=== PATIENT | female | born 1970 | race Caucasian/White ===

== ENCOUNTER 2018-03-11 18:56 | Emergency (ER) | payer OTHER ==
[~2018-03-11] VITALS: Ht 160 cm; Wt 135.6 kg
[~2018-03-11 18:56] MED LIST: ALAVERT10 M1 PO; ALBUTEROL SULF8.5 GM IH; ANAPROX DS550 M1 PO; ARTHRITIS MED; AZITHROMYCIN250 MG1 PO; CEFDINIR300 MG PO; CEPHALEXIN500 MG PO; FUROSEMIDE20 MG PO; GUAIFENESIN WI120 ML PO; LANTUS 10100 UNITS/ SC; LEVAQUIN750 MG PO; LISINOPRIL10 MG PO; METFORMIN HCL500 MG PO; MOTRIN800 MG PO; NOVOLOG 10100 UNITS/ SC; OMEPRAZOLE20 MG PO; OXYCODONE HCL5 MG PO; PEPCID20 MG PO; PERCOCET 5/31 TABLET PO; PRAVACHOL10 MG PO; ROBITUSSIN AC,T10 ML PO; VALIUM5 MG PO; WELLBUTRIN XL150 MG PO
[2018-03-11] MEDS ORDERED: AMOXICILLIN500 M1 PO (21:12)
[2018-03-11] MEDS ORDERED: XYLOCAINE VISC100 ML PO (21:12)
[2018-03-11] MEDS ORDERED: NORCO 5/3251 TABLET PO (21:12)
[2018-03-11 21:20] VITALS: BP 159/99
== END 2018-03-11 21:22 | disposition home or self-care (01) ==
LOC: EME 18:56 → EXP 18:56
DX: R13.10 Dysphagia, unspecified (principal)
CPT/HCPCS: 70360; 87081; 87651 90; 99281; 99283